=== PATIENT | female | born 2005 | race Caucasian/White ===

== ENCOUNTER 2024-02-01 23:16 | Emergency (ER) | payer SELFPAY ==
[~2024-02-01] VITALS: Ht 162.6 cm; Wt 94.0 kg
[2024-02-01 23:39] VITALS: O2SAT 99
[2024-02-02] MEDS ORDERED: METH-653 MT (00:08)
[2024-02-02] MEDS ORDERED: LIDO700A15 TP (00:08)
[2024-02-02] MEDS: ACETAMINOPHEN 325MG TABLET PO ONE (00:15)
[2024-02-02 01:40] VITALS: BP 130/74; PULSE 88; RESP 18; TEMP 98.4
== END 2024-02-02 02:00 | disposition home or self-care (01) ==
LOC: ER 23:16
DX: S06.0X0A Concussion without loss of consciousness, initial encounter (principal); R51.9 Headache, unspecified; M54.2 Cervicalgia; V49.59XA Passenger injured in collision with other motor vehicles in traffic accident, initial encounter; Y93.89 Activity, other specified; Y92.89 Other specified places as the place of occurrence of the external cause; Y99.8 Other external cause status
CPT/HCPCS: 99282